=== PATIENT | female | born 1995 | race American Indian/Alaskan Native ===

== ENCOUNTER 2017-03-02 14:49 | Emergency (ER) | payer SELFPAY ==
[2017-03-02 14:56] VITALS: BP 109/67
[2017-03-02] MEDS ORDERED: XYLOCAINE 1% MPF 5 mL INFILTRATI ONE (18:06)
[2017-03-02] MEDS ORDERED: ROCEPHIN IM ONE (18:06)
[2017-03-02] MEDS ORDERED: DECADRON IM ONE (18:06)
[2017-03-02] MEDS ORDERED: LIDOCAINE VISCOUS 2% PO ONE (18:07)
--- NOTE | 2017-03-02 18:11 | Emergency Department Report ---
ED ENT HPI - General Chief complaint: Sore Throat Stated complaint: SORE THROAT Time Seen by Provider: 03/02/17 17:28 Source: patient Mode of arrival: Ambulatory Limitations: No Limitations - History of Present Illness Initial comments: This is a 21-year-old female nontoxic, well nourished in appearance, no acute signs of distress presents to the ED with c/o of sore throat x4 days. Patient stated has been having fevers and has been taking motrin. Patient denies any drooling or hoarseness. Patient denies any chest pain, shortness of breathe, headache, stiff neck, numbness, tingling, difficulty swallowing. Patient denies any sick contacts. Patient denies any drug allergies or PMH. MD complaint: sore throat -: days(s) (4) Location: throat Severity: moderate Severity scale (0 -10): 10 Quality: aching Consistency: constant Improves with: none Worsens with: swallowing Associated Symptoms: pain with swallowing, sore throat. denies: fever, cough, gum swelling, toothache, tinnitus, hearing loss, discharge from ear, rhinorrhea - Related Data Previous Rx's Medication Instructions Recorded Last Taken Type Amoxicillin/K Clav Tab [Augmentin 1 tab PO Q12HR #20 tab 03/02/17 Unknown Rx 875 mg] Fluconazole [Diflucan TAB] 150 mg PO ONCE #1 tablet 03/02/17 Unknown Rx Ibuprofen [Motrin] 600 mg PO Q6H PRN #20 tablet 03/02/17 Unknown Rx predniSONE [Deltasone] 40 mg PO QDAY #5 tab 03/02/17 Unknown Rx Allergies Allergy/AdvReac Type Severity Reaction Status Date / Time No Known Allergies Allergy Unverified 03/02/17 14:52 ED Dental HPI - General Chief complaint: Sore Throat Stated complaint: SORE THROAT Time Seen by Provider: 03/02/17 17:28 Source: patient Mode of arrival: Ambulatory Limitations: No Limitations - Related Data Previous Rx's Medication Instructions Recorded Last Taken Type Amoxicillin/K Clav Tab [Augmentin 1 tab PO Q12HR #20 tab 03/02/17 Unknown Rx 875 mg] Fluconazole [Diflucan TAB] 150 mg PO ONCE #1 tablet 03/02/17 Unknown Rx Ibuprofen [Motrin] 600 mg PO Q6H PRN #20 tablet 03/02/17 Unknown Rx predniSONE [Deltasone] 40 mg PO QDAY #5 tab 03/02/17 Unknown Rx Allergies Allergy/AdvReac Type Severity Reaction Status Date / Time No Known Allergies Allergy Unverified 03/02/17 14:52 ED Review of Systems ROS: Stated complaint: SORE THROAT Other details as noted in HPI Constitutional: denies: chills, fever Eyes: denies: eye pain, eye discharge, vision change ENT: throat pain. denies: ear pain Respiratory: denies: cough, shortness of breath, wheezing Cardiovascular: denies: chest pain, palpitations Endocrine: no symptoms reported Gastrointestinal: denies: abdominal pain, nausea, diarrhea Genitourinary: denies: urgency, dysuria, discharge Musculoskeletal: denies: back pain, joint swelling, arthralgia Skin: denies: rash, lesions Neurological: denies: headache, weakness, paresthesias Psychiatric: denies: anxiety, depression Hematological/Lymphatic: denies: easy bleeding, easy bruising ED Past Medical Hx - Past Medical History Previous Medical History?: No - Surgical History Past Surgical History?: No - Social History Smoking Status: Never Smoker Substance Use Type: Alcohol, Marijuana - Medications Home Medications: Home Medications Medication Instructions Recorded Confirmed Last Taken Type Amoxicillin/K Clav Tab [Augmentin 1 tab PO Q12HR #20 tab 03/02/17 Unknown Rx 875 mg] Fluconazole [Diflucan TAB] 150 mg PO ONCE #1 tablet 03/02/17 Unknown Rx Ibuprofen [Motrin] 600 mg PO Q6H PRN #20 tablet 03/02/17 Unknown Rx predniSONE [Deltasone] 40 mg PO QDAY #5 tab 03/02/17 Unknown Rx ED Physical Exam - General Limitations: No Limitations General appearance: alert, in no apparent distress - Head Head exam: Present: atraumatic, normocephalic, normal inspection - Eye Eye exam: Present: normal appearance, PERRL, EOMI. Absent: scleral icterus, conjunctival injection, nystagmus, periorbital swelling, periorbital tenderness Pupils: Present: normal accommodation - ENT ENT exam: Present: mucous membranes moist, TM's normal bilaterally, normal external ear exam - Expanded ENT Exam Expanded Ear exam: Present: normal external inspection Mouth exam: Present: normal external inspection, tongue normal. Absent: drooling, trismus, muffled voice, tongue elevation, laceration Teeth exam: Present: normal inspection Throat exam: Positive: tonsillar erythema, tonsillomegaly (2+), tonsillar exudate, other (Uvula midline. No abscess or swelling noted. ). Negative: R peritonsillar mass, L peritonsillar mass - Neck Neck exam: Present: normal inspection, full ROM, lymphadenopathy (tonsilar bilateral.). Absent: tenderness, meningismus, thyromegaly - Respiratory Respiratory exam: Present: normal lung sounds bilaterally. Absent: respiratory distress, wheezes, rales, rhonchi, stridor, chest wall tenderness, accessory muscle use, decreased breath sounds, prolonged expiratory - Cardiovascular Cardiovascular Exam: Present: regular rate, normal rhythm, normal heart sounds. Absent: bradycardia, tachycardia, irregular rhythm, systolic murmur, diastolic murmur, rubs, gallop - GI/Abdominal GI/Abdominal exam: Present: soft, normal bowel sounds. Absent: distended, tenderness, guarding, rebound, rigid, diminished bowel sounds - Rectal Rectal exam: Present: deferred - Extremities Exam Extremities exam: Present: normal inspection, full ROM, normal capillary refill. Absent: tenderness, pedal edema, joint swelling, calf tenderness - Back Exam Back exam: Present: normal inspection, full ROM. Absent: tenderness, CVA tenderness (R), CVA tenderness (L), muscle spasm, paraspinal tenderness, vertebral tenderness, rash noted - Neurological Exam Neurological exam: Present: alert, oriented X3, CN II-XII intact, normal gait, reflexes normal - Psychiatric Psychiatric exam: Present: normal affect, normal mood - Skin Skin exam: Present: warm, dry, intact, normal color. Absent: rash ED Course Vital Signs 03/02/17 14:52 Temperature 98.7 F Pulse Rate 80 Respiratory 16 Rate Blood Pressure 109/67 O2 Sat by Pulse 98 Oximetry - Reevaluation(s) Reevaluation #1: 03/02/17 18:12 Patient is speaking in full sentences with no signs of distress noted. ED Medical Decision Making - Medical Decision Making This is a 21-year-old female that presents with tonsillitis with exudate. Patient is stable and was examined by me. There is no abscess noted on the exam. Patient received Rocephin 1G and Decadron 10 mg IM. Patient also received lidocaine visous in the ED and stated symptoms are improving and subsiding. I will discharge patient with augmentin. Patient was instructed to Follow-up with a primary care doctor in 3-5 days or if symptoms worsen and continue return to emergency room as soon as possible. At time time of discharge, the patient does not seem toxic or ill in appearance. No acute signs of distress noted. Patient agrees to discharge treatment plan of care. No further questions noted by the patient. Negative strep and influenza swab. Critical care attestation.: If time is entered above; I have spent that time in minutes in the direct care of this critically ill patient, excluding procedure time. ED Disposition Clinical Impression: Tonsillitis with exudate Disposition: TO HOME OR SELFCARE Is pt being admited?: No Does the pt Need Aspirin: No Condition: Stable Instructions: Prednisone (By mouth), Amoxicillin/Clavulanate Potassium (By mouth), Tonsillitis (ED) Additional Instructions: Follow-up with a primary care doctor in 3-5 days or if symptoms worsen and continue return to emergency room as soon as possible. Increase hydration and continue taking Motrin for fever episode as prescribed. Prescriptions: Amoxicillin/K Clav Tab [Augmentin 875 mg] 1 tab PO Q12HR #20 tab Fluconazole [Diflucan TAB] 150 mg PO ONCE #1 tablet Ibuprofen [Motrin] 600 mg PO Q6H PRN #20 tablet PRN Reason: Fever predniSONE [Deltasone] 40 mg PO QDAY #5 tab Referrals: PRIMARY CAREMD [Primary Care Provider] - 3-5 Days CHAPARRITA LORENZ MD [Staff Physician] - 3-5 Days [facility] [Outside] - 3-5 Days [facility] [Outside] - 3-5 Days Forms: Work/School Release Form(ED)
== END 2017-03-02 18:28 | disposition home or self-care (01) ==
LOC: ED 14:49
DX: J03.90 Acute tonsillitis, unspecified (principal); F12.10 Cannabis abuse, uncomplicated
CPT/HCPCS: 87116; 87400; 87430; 96372; 99282; J0696; J1100

== ENCOUNTER 2017-03-12 17:00 | Emergency (ER) | payer SELFPAY ==
[2017-03-12 17:22] VITALS: BP 124/67
--- NOTE | 2017-03-12 18:30 | Emergency Department Report ---
Chief Complaint: Urogenital-Female Stated Complaint: VAGINAL BUMPS - HPI History of Present Illness: Ms. Mensah presents with a rash in the vulvarr region. She has a clinic appointment scheduled on Wednesday. Medical screening exam performed. No life or limb threatening emergency exists. - Exam Vital Signs: Vital Signs 03/12/17 17:18 Temperature 98.2 F Pulse Rate 75 Respiratory 18 Rate Blood Pressure 124/67 O2 Sat by Pulse 99 Oximetry MSE screening note: Focused history and physical exam performed. Due to findings the following was ordered: ED Disposition for MSE Clinical Impression: Dermatitis Disposition: Z- MED SCREENING EXAM-LEFT Is pt being admited?: No Does the pt Need Aspirin: No Condition: Stable Time of Disposition: 18:30
== END 2017-03-12 18:42 | disposition left against medical advice (07) ==
LOC: ED 17:00
DX: N89.8 Other specified noninflammatory disorders of vagina (principal); Z53.21 Procedure and treatment not carried out due to patient leaving prior to being seen by health care provider